=== PATIENT | female | born 1965 | race Caucasian/White ===

== ENCOUNTER 2017-06-18 12:56 | Emergency (ER) | payer OTHER ==
[2017-06-18] MEDS: ALBUTEROL 0.5% (NEB) 2.5 MG/0.5 ML AMP INH (13:58)
[2017-06-18] MEDS: morphine 4 MG/ML VIAL IM (14:16)
[2017-06-18] MEDS: ONDANSETRON (ODT) 4 MG TAB ODT (14:17)
[2017-06-18] MEDS: predniSONE 20 MG TAB PO (14:17)
== END 2017-06-18 16:16 | disposition home or self-care (01) ==
LOC: E/R 12:56
DX: G89.4 Chronic pain syndrome (principal); F41.9 Anxiety disorder, unspecified; J32.9 Chronic sinusitis, unspecified; J45.21 Mild intermittent asthma with (acute) exacerbation; J44.9 Chronic obstructive pulmonary disease, unspecified; I10 Essential (primary) hypertension
CPT/HCPCS: 93005; 94644; 96372; 99284-25